=== PATIENT | female | born 1985 | race Caucasian/White ===

== ENCOUNTER 2016-03-11 16:24 | Emergency (ER) | payer OTHER ==
[2016-03-11] MEDS ORDERED: MORPHINE 4 MG/ML 1ML SYRINGE As Ordered ONE (17:59)
[2016-03-11 18:52] LABS: BASO % 0.3 % (0.0-1.0); EOS # 0.2 K/mm3 (0.0-0.50); EOS % 1.1 % (0.0-3.0); LARGE UNSTAINED CELL # 0.3 K/mm3 (0.0-0.4); LARGE UNSTAINED CELL % 2.1 % (0.0-4.0); LYMPH # 4.4 K/mm3 (1.5-4.5); LYMPH % 33.3 % (24.0-44.0); MEAN CORPUSCULAR HEMOGLOBIN 30.8 pg (27.0-33.0); MEAN CORPUSCULAR HGB CONC 33.9 g/dl (32.0-36.5); MEAN CORPUSCULAR VOLUME 90.8 fl (80.0-96.0); MONO # 0.5 K/mm3 (0.0-0.8); MONO % 3.5 % (0.0-5.0); NEUTROPHILS # 7.8 K/mm3 (1.8-7.7); NEUTROPHILS % 59.7 % (36.0-66.0); PLATELET COUNT, AUTOMATED 214 k/mm3 (150-450); RED CELL DISTRIBUTION WIDTH 13.1 % (11.5-14.5); WHITE BLOOD COUNT 13.1 K/mm3 (4.0-10.0)
[2016-03-11 18:55] LABS: ALBUMIN/GLOBULIN RATIO 1.21 (1.00-1.93); ALKALINE PHOSPHATASE 70 U/L (45-117); ALT/SGPT 10 U/L (12-78); AMYLASE 73 U/L (25-115); ANION GAP 8 MEQ/L (8-16); AST/SGOT 15 U/L (15-37); BILIRUBIN,DIRECT < 0.1 MG/DL (0.0-0.2); BILIRUBIN,TOTAL 0.3 MG/DL (0.2-1.0); BLOOD UREA NITROGEN 17 MG/DL (7-18); CALCIUM LEVEL 9.5 MG/DL (8.5-10.1); CARBON DIOXIDE LEVEL 26 MEQ/L (21-32); CHLORIDE LEVEL 109 MEQ/L (98-107); CREATININE FOR GFR 0.63 MG/DL (0.55-1.02); GLOMERULAR FILTRATION RATE > 60.0 (>60); GLUCOSE, FASTING 82 MG/DL (70-105); POTASSIUM SERUM 3.7 MEQ/L (3.5-5.1); SODIUM LEVEL 143 MEQ/L (136-145); TOTAL PROTEIN 7.3 GM/DL (6.4-8.2)
--- NOTE | 2016-03-11 19:40 | REPUSA ---
CLINICAL HISTORY: Renal colic TECHNIQUE: Multiple axial, sagittal and coronal CT images were obtained through the abdomen and pelvi s without administration of oral or IV contrast material. COMMENTS: The liver is of uniform attenuation without mass or defect. There is no intra or extrahepatic biliary ductal dilatation. The spleen is normal. The gallbladder is within normal limits. The pancreas is of normal contour and attenuation characteristics. There is no evidence of adrenal mass. The kidneys are normal in size, shape and configuration. No renal or ureteral calculi are identified. There is no hydroureter or hydronephrosis. There is no evidence for appendicitis. There is wall thickening noted involving fluid-filled loops of jejunum and ileum compatible with enteritis. No evidence for small or large bowel obstruction. There is no evidence of abdominal ascites or lymphadenopathy. There is no evidence of intrinsic or extrinsic bladder mass. There is no pelvic ascites or lymphadeno [place]. Status post complete hysterectomy. Images of the lung bases show no evidence of pleural or parenchymal mass. There are no pleural effusi ons. The bony structures are free of lytic or blastic lesions. IMPRESSION: Enteritis. Infectious and inflammatory etiologies are considered. No renal or ureteral calculi. Thank you for your kind referral of this patient.
[2016-03-11] MEDS ORDERED: KETOROLAC 30 MG/ML VIAL (J1885) As Ordered ONE (20:40)
[2016-03-11] MEDS ORDERED: metroNIDAZOLE (FLAGYL) 500 MG TAB As Ordered ONE (20:40)
--- NOTE | 2016-03-11 22:21 | EDDOCDS ---
Physician Documentation [facility] Name: Rosario Carranza Age: 30 yrs Sex: Female : 1985 Arrival Date: 03/11/2016 Time: 16:24 Bed 15 Private MD: CONSTANTINE Paez Disposition: 03/11 20:08 Critical Care: Critical care not applicable. Disposition: 03/11/16 22:02 Discharged to Home/Self Care. Impression: Other viral enteritis, Acute vaginitis - bacterial vaginosis. - Condition is Stable. - Discharge Instructions: Bacterial Vaginosis, Viral Gastroenteritis. - Prescriptions for Bentyl 10 mg Oral Capsule - take 1 capsule by ORAL route every 6 hours As needed; 40 capsule. Flagyl 500 mg Oral Tablet - take 1 tablet by ORAL route every 12 hours for 7 days; 14 tablet. ZOFRAN ODT 4 mg - dissolve 1 tablet by ORAL route 4 times per day As needed do not chew, do not swallow whole; 10 tablet. - Medication Reconciliation, Local Pharmacy Hours form. - Follow up: [facility]; When: 2 - 3 days; Reason: Recheck today's complaints, Continuance of care. - Problem is new. - Symptoms have improved. Historical: - Allergies: Lamictal (Rash); Levaquin (Vomit); - Home Meds: 1. Klonopin 0.5 mg Oral TbDL 1 tab four times a day 2. metoprolol succinate 25 mg Tb24 1 tab nightly 3. Seroquel 100 mg Oral tab 1 tab nightly - PMHx: Anxiety; tachycardia; - PSHx: Hysterectomy; ; D & C; Left Knee Surgery; - Social history: Smoking status: Patient uses tobacco products, heavy tobacco smoker. No barriers to communication noted, The patient speaks fluent Turkmen. - Family history: Not pertinent. - : The pt / caregiver states he / she is not on anticoagulants. Home medication list is obtained from the patient, [employer] import data. - Exposure Risk Screening:: None identified. 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 2 in. (157.48 cm); Pain 8/10; 18:51 BP 115 / 48; Pulse 85; Resp 18; Pulse Ox 98% on R/A; Pain 6/10; dsf 22:10 BP 127 / 72; Pulse 65; Resp 18; Temp 98.6(TE); Pulse Ox 98% on R/A; Pain 3/10; daniel 16:34 Body Mass Index 20.12 (49.90 kg, 157.48 cm) cmb MDM: 17:50 IV Saline Lock ordered. cs11 17:50 NS 0.9% 1000 ml IV at bolus once ordered. cs11 17:50 Set up pelvic ordered. cs11 17:51 morphine 4 mg IVP once ordered. cs11 17:51 CBC with Diff Ordered. EDMS 17:51 MED Profile Ordered. EDMS 17:51 Liver Profile Ordered. EDMS 17:51 Amylase Ordered. EDMS 17:51 Lipase Ordered. EDMS 17:51 Urinalysis Ordered. EDMS 17:51 Urine Culture Ordered. EDMS 18:28 Wet Prep Ordered. EDMS 18:28 GC & Chlamydia Amplification Ordered. EDMS 18:30 CT ABD & PELVIS: No Contrast Ordered. EDMS 19:32 Financial registration complete. gjb 20:06 Test interpretation: interpreted by Radiologist and personally reviewed, Abdomen/Pelvis pc CT; enteritis, else nad. 20:07 CBC with Diff Reviewed. pc 20:07 MED Profile Reviewed. pc 20:07 Liver Profile Reviewed. pc 20:07 Urinalysis Reviewed. pc 20:07 Amylase Reviewed. pc 20:07 Lipase Reviewed. pc 20:07 Wet Prep Reviewed. pc 20:07 CT ABD & PELVIS: No Contrast Reviewed. pc 20:08 Data reviewed: lab test results, all radiology studies and available results. Test pc interpretation: LAB - all labs as ordered have been reviewed, interpreted and considered in the overall management of the clinical presentation;. The patient has been re-examined and re-evaluated. The patient's symptoms have mildly improved after treatment. Disposition: The historical points, examination findings, and any diagnostic results supporting the provided diagnosis, were discussed with the patient or legal guardian. The need for outpatient follow up with the provider listed on their discharge instructions was discussed. They were encouraged to return to [facility], or the nearest ED, if symptoms worsen/persist, or for any other questions/concerns. 20:09 metroNIDAZOLE 500 mg PO once ordered. pc 20:09 ketorolac 30 mg IVP once ordered. pc Administered Medications: 18:11 Drug: NS 0.9% 1000 ml [sodium chloride 0.9 % injection solution] Route: IV; Rate: dsf bolus; Site: right antecubital; 18:11 Drug: morphine 4 mg [morphine 4 mg/mL intravenous cartridge (1 mL)] Route: IVP; Site: dsf right antecubital; 18:51 Follow up: BP 115 / 48; Pulse 85 bpm; Resp 18 bpm; Pulse Ox 98% RA; Pain 6/10 Adult dsf 20:45 Drug: metroNIDAZOLE 500 mg [metronidazole 500 mg tablet (1 tabs)] Route: PO; cf2 20:45 Drug: ketorolac 30 mg [ketorolac 30 mg/mL (1 mL) injection solution (1 mL)] Route: IVP; cf2 Site: right antecubital; Signatures: Dispatcher [employer] EDMS Colin Villa MD MD pc Sleeman, Kacey, RN RN Jos Sesay DO DO cs11 Libia Jones RN RN ko2 Isabel Vera Christina, RN RN cf2 Aspen Diggs RN dsf MTDD
--- NOTE | 2016-03-11 22:21 | EDDOCDS ---
Nurse's Notes [facility] Name: Rosario Carranza Age: 30 yrs Sex: Female : 1985 Arrival Date: 03/11/2016 Time: 16:24 Bed 15 Private MD: TREMAINE Paez Diagnosis: Other viral enteritis;Acute vaginitis-bacterial vaginosis Presentation: 03/11 17:08 Presenting complaint: states: patient is having severe abdominal pain - seen at [facility] and sent here for an ultrasound. Risk factors: the patient reports no vaginal bleeding. Adult Sepsis Screening: The patient does not have new or worsening altered mentation. Patient's respiratory rate is less than 22. Systolic blood pressure is greater than 100. Patient has a qSOFA score of 0- Negative Sepsis Screen. Suicide/Homicide risk assessment- the patient denies having any suicidal and/or homicidal ideations and does not present with any other emotional, behavioral or mental health complaints. Status: The patient is a dependent. Transition of care: Patient was received from [facility]. 17:08 Acuity: ROSS Level 3 [facility] 17:08 Method Of Arrival: Ambulance [facility] Triage Assessment: 17:10 General: Appears uncomfortable, well developed, well nourished, well groomed, Behavior kcs is agitated, anxious. Pain: Location: left pelvic area Pain currently is 8 out of 10 on a pain scale. HIV screening NA for this visit Offered previously. Neurological: Level of Consciousness is awake, alert. Respiratory: Airway is patent Respiratory effort is even, unlabored, Respiratory pattern is regular, symmetrical. Derm: Skin is intact, is healthy with good turgor, Skin is dry, Skin is normal. 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 Klonopin 0.5 mg Oral TbDL 1 tab four times a day 2. metoprolol succinate 25 mg Tb24 1 tab nightly 3. Seroquel 100 mg Oral tab 1 tab nightly - PMHx: Anxiety; tachycardia; - PSHx: Hysterectomy; ; D & C; Left Knee Surgery; - Social history: Smoking status: Patient uses tobacco products, heavy tobacco smoker. No barriers to communication noted, The patient speaks fluent Algerian. - Family history: Not pertinent. - : The pt / caregiver states he / she is not on anticoagulants. Home medication list is obtained from the patient, [employer] import data. - Exposure Risk Screening:: None identified. Screenin:18 Screening information is obtained from the patient. Fall risk: No risks identified. ko2 Assistance ADL's: requires no assistance with activities of daily living. Abuse/DV Screen: The patient / caregiver reports he/she is: not in a situation that causes fear, pain or injury. Nutritional screening: No deficits noted. Advance Directives: Currently, there is no health care proxy. There is no active DNR order. There is no living will. There is no Power of County Surveyor. home support is adequate. Assessment: 18:15 General: Appears uncomfortable, Behavior is appropriate for age, crying. Pain: dsf Location: left lower quadrant Pain currently is 8 out of 10 on a pain scale. Quality of pain is described as sharp, Pain began 1600. Neurological: Level of Consciousness is awake, alert, Oriented to person, place, time. Cardiovascular: Capillary refill < 3 seconds Heart tones S1 S2 present. Respiratory: Airway is patent Respiratory effort is even, unlabored, Respiratory pattern is regular, symmetrical, Breath sounds are clear bilaterally. GI: Abdomen is non- distended Bowel sounds present X 4 quads. Abd is soft X 4 quads Abd is tender to palpation in left lower quadrant. Derm: Skin is pink, warm & dry. 20:30 Reassessment: Patient appears in no apparent distress at this time. Patient denies pain cf2 at this time. Patient states feeling better. Patient states symptoms have improved. 22:15 General: Appears in no apparent distress, Behavior is appropriate for age, cooperative. ko2 Neurological: Level of Consciousness is awake, alert. Respiratory: Airway is patent Respiratory effort is even, unlabored, Respiratory pattern is regular, symmetrical. Derm: Skin is pink, warm & dry. Vital Signs: 16:34 BP 116 / 96; Pulse 101; Resp 22; Temp 99.3(O); Pulse Ox 100% ; Weight 49.9 kg; Height 5 cmb ft. 2 in. (157.48 cm); Pain 8/10; 18:51 BP 115 / 48; Pulse 85; Resp 18; Pulse Ox 98% on R/A; Pain 6/10; dsf 22:10 BP 127 / 72; Pulse 65; Resp 18; Temp 98.6(TE); Pulse Ox 98% on R/A; Pain 3/10; daniel 16:34 Body Mass Index 20.12 (49.90 kg, 157.48 cm) cmb Vitals: 16:34 Log In Time N/A - ambulance arrival. cmb ED Course: 16:25 Patient visited by Evonne Carranza, Tool And Die Manager. lbd 16:25 Patient moved to Waiting lbd 16:26 [place] [facility] [place] Physician. lbd 16:36 Patient moved to Pre RCE cmb 17:10 Triage Initiated kcs 17:36 Patient moved to 15 ct3 17:37 Jos Stone DO is Attending Physician. cs11 17:37 Patient visited by Jos Stone DO. cs11 18:14 Urine Culture Sent. dsf 18:14 Urinalysis Sent. dsf 18:14 Lipase Sent. dsf 18:15 Amylase Sent. dsf 18:15 MED Profile Sent. dsf 18:15 CBC with Diff Sent. dsf 18:15 Liver Profile Sent. dsf 18:15 Inserted saline lock: 18 gauge in right antecubital area The patient tolerated the dsf procedure well. 18:16 Patient visited by Aspen Diggs RN. dsf 19:02 Maddie Sharpe RN is Primary Nurse. cf2 19:02 Patient visited by Maddie Sharpe RN. cf2 19:03 Attending Physician role handed off by Jos Stone DO pc 19:03 Colin Villa MD is Attending Physician. pc 19:03 Patient visited by Colin Villa MD. pc 19:47 Patient visited by Maddie Shapre,MARGARITA. cf2 19:50 CT ABD & PELVIS: No Contrast Returned. EDMS 20:26 Patient visited by Maddie Sharpe,MARGARITA. cf2 21:26 Patient visited by Laurel Snell PCA. daniel 21:52 Patient visited by Maddie Sharpe,MARGARITA. cf2 22:00 Patient visited by Maddie Sharpe,MARGARITA. cf2 22:02 [facility] is Referral Physician. pc 22:11 Patient visited by Laurel Snell PCA. daniel 22:16 Discontinued lock intact, bleeding controlled, pressure dressing applied, No ko2 redness/swelling at site. No procedures done that require assistance. 22:18 The patient / caregiver is instructed regarding the plan of care and ED course. ko2 22:19 Patient visited by Maddie Sharpe RN. cf2 Administered Medications: 18:11 Drug: NS 0.9% 1000 ml [sodium chloride 0.9 % injection solution] Route: IV; Rate: dsf bolus; Site: right antecubital; 18:11 Drug: morphine 4 mg [morphine 4 mg/mL intravenous cartridge (1 mL)] Route: IVP; Site: dsf right antecubital; 18:51 Follow up: BP 115 / 48; Pulse 85 bpm; Resp 18 bpm; Pulse Ox 98% RA; Pain 6/10 Adult dsf 20:45 Drug: metroNIDAZOLE 500 mg [metronidazole 500 mg tablet (1 tabs)] Route: PO; cf2 20:45 Drug: ketorolac 30 mg [ketorolac 30 mg/mL (1 mL) injection solution (1 mL)] Route: IVP; cf2 Site: right antecubital; Order Results: Lab Order: CBC with Diff; SPEC'M 03/11/16 18:12 Test: WHITE BLOOD COUNT; Value: 13.1; Range: 4.0-10.0; Abnormal: Above high normal; Units: K/mm3; Status: F Test: RED BLOOD COUNT; Value: 4.18; Range: 4.00-5.40; Units: M/mm3; Status: F Test: HEMOGLOBIN; Value: 12.9; Range: 12.0-16.0; Units: g/dl; Status: F Test: HEMATOCRIT; Value: 38.0; Range: 36.0-47.0; Units: %; Status: F Test: MEAN CORPUSCULAR VOLUME; Value: 90.8; Range: 80.0-96.0; Units: fl; Status: F Test: MEAN CORPUSCULAR HEMOGLOBIN; Value: 30.8; Range: 27.0-33.0; Units: pg; Status: F Test: MEAN CORPUSCULAR HGB CONC; Value: 33.9; Range: 32.0-36.5; Units: g/dl; Status: F Test: RED CELL DISTRIBUTION WIDTH; Value: 13.1; Range: 11.5-14.5; Units: %; Status: F Test: PLATELET COUNT, AUTOMATED; Value: 214; Range: 150-450; Units: k/mm3; Status: F Test: NEUTROPHILS %; Value: 59.7; Range: 36.0-66.0; Units: %; Status: F Test: LYMPH %; Value: 33.3; Range: 24.0-44.0; Units: %; Status: F Test: MONO %; Value: 3.5; Range: 0.0-5.0; Units: %; Status: F Test: EOS %; Value: 1.1; Range: 0.0-3.0; Units: %; Status: F Test: BASO %; Value: 0.3; Range: 0.0-1.0; Units: %; Status: F Test: LARGE UNSTAINED CELL %; Value: 2.1; Range: 0.0-4.0; Units: %; Status: F Test: NEUTROPHILS #; Value: 7.8; Range: 1.8-7.7; Abnormal: Above high normal; Units: K/mm3; Status: F Test: LYMPH #; Value: 4.4; Range: 1.5-4.5; Units: K/mm3; Status: F Test: MONO #; Value: 0.5; Range: 0.0-0.8; Units: K/mm3; Status: F Test: EOS #; Value: 0.2; Range: 0.0-0.50; Units: K/mm3; Status: F Test: BASO #; Value: 0.0; Range: 0.0-0.2; Units: K/mm3; Status: F Test: LARGE UNSTAINED CELL #; Value: 0.3; Range: 0.0-0.4; Units: K/mm3; Status: F Lab Order: [facility] Profile; [facility] 03/11/16 18:12 Test: GLUCOSE, FASTING; Value: 82; Range: 70-105; Units: MG/DL; Status: F Test: BLOOD UREA NITROGEN; Value: 17; Range: 7-18; Units: MG/DL; Status: F Test: CREATININE FOR GFR; Value: 0.63; Range: 0.55-1.02; Units: MG/DL; Status: F Test: GLOMERULAR FILTRATION RATE; Value: > 60.0; Range: >60; Status: F Test: SODIUM LEVEL; Value: 143; Range: 136-145; Units: MEQ/L; Status: F Test: POTASSIUM SERUM; Value: 3.7; Range: 3.5-5.1; Units: MEQ/L; Status: F Test: CHLORIDE LEVEL; Value: 109; Range: 98-107; Abnormal: Above high normal; Units: MEQ/L; Status: F Test: CARBON DIOXIDE LEVEL; Value: 26; Range: 21-32; Units: MEQ/L; Status: F Test: ANION GAP; Value: 8; Range: 8-16; Units: MEQ/L; Status: F Test: CALCIUM LEVEL; Value: 9.5; Range: 8.5-10.1; Units: MG/DL; Status: F Test Note: ; Units are mL/min/1.73 m2 Chronic Kidney Disease Staging per NKF: Stage I & II GFR >=60 Normal to Mildly Decreased Stage III GFR 30-59 Moderately Decreased Stage IV GFR 15-29 Severely Decreased Stage V GFR <15 Very Little GFR Left ESRD GFR <15 on MOTEL FOOD SERVICE SUPERVISOR Lab Order: Liver Profile; [facility] 03/11/16 18:12 Test: AST/SGOT; Value: 15; Range: 15-37; Units: U/L; Status: F Test: ALT/SGPT; Value: 10; Range: 12-78; Abnormal: Below low normal; Units: U/L; Status: F Test: ALKALINE PHOSPHATASE; Value: 70; Range: 45-117; Units: U/L; Status: F Test: BILIRUBIN,TOTAL; Value: 0.3; Range: 0.2-1.0; Units: MG/DL; Status: F Test: BILIRUBIN,DIRECT; Value: < 0.1; Range: 0.0-0.2; Units: MG/DL; Status: F Test: TOTAL PROTEIN; Value: 7.3; Range: 6.4-8.2; Units: GM/DL; Status: F Test: ALBUMIN; Value: 4.0; Range: 3.2-5.2; Units: GM/DL; Status: F Test: ALBUMIN/GLOBULIN RATIO; Value: 1.21; Range: 1.00-1.93; Status: F Lab Order: Amylase; SPEC'M 03/11/16 18:12 Test: AMYLASE; Value: 73; Range: 25-115; Units: U/L; Status: F Lab Order: Lipase; SPEC'M 03/11/16 18:12 Test: LIPASE; Value: 214; Range: 73-393; Units: U/L; Status: F Lab Order: Urinalysis; SPEC'M 03/11/16 18:12 Test: APPEARANCE, URINE; Value: TURBID; Range: CLEAR; Abnormal: Above high normal; Status: F Test: COLOR, URINE; Value: YELLOW; Range: YELLOW; Status: F Test: PH,URINE; Value: 7.0; Range: 5.0-9.0; Units: UNITS; Status: F Test: SPECIFIC GRAVITY URINE AUTO; Value: 1.013; Range: 1.002-1.035; Status: F Test: PROTEIN, URINE AUTO; Value: NEGATIVE; Range: NEGATIVE; Units: mg/dL; Status: F Test: GLUCOSE, URINE (UA) AUTO; Value: NEGATIVE; Range: NEGATIVE; Units: mg/dL; Status: F Test: KETONE, URINE AUTO; Value: NEGATIVE; Range: NEGATIVE; Units: mg/dL; Status: F Test: UROBILINOGEN, URINE AUTO; Value: 0.2; Range: 0.0-2.0; Units: mg/dL; Status: F Test: BILIRUBIN, URINE AUTO; Value: NEGATIVE; Range: NEGATIVE; Status: F Test: NITRITE, URINE AUTO; Value: NEGATIVE; Range: NEGATIVE; Status: F Test: LEUKOCYTE ESTERASE, URINE AUTO; Value: NEGATIVE; Range: NEGATIVE; Status: F Test: BLOOD, URINE BLOOD; Value: NEGATIVE; Range: NEGATIVE; Status: F Test: WBC, URINE AUTO; Value: 0; Range: 0-3; Units: /HPF; Status: F Test: RBC, URINE AUTO; Value: 0; Range: 0-3; Units: /HPF; Status: F Test: BACTERIA, URINE AUTO; Value: NEGATIVE; Range: NEGATIVE; Status: F Test: SQUAMOUS EPITHELIAL CELL UR AU; Value: 3; Range: 0-6; Units: /HPF; Status: F Test: HYALINE CAST, URINE AUTO; Value: 0; Range: 0-1; Units: /LPF; Status: F Test: AMORPHOUS SEDIMENT; Value: MODERATE; Range: NEGATIVE; Abnormal: Above high normal; Status: F Lab Order: Wet Prep; SPEC'M 03/11/16 18:34 Test: WET PREP; Value: WET PREP RESULT; Status: F Test: WET PREP; Value: FEW WBC; Status: F Test: WET PREP; Value: FEW RBC; Status: F Test: WET PREP; Value: MODERATE CLUE CELLS PRESENT; Status: F Test: WET PREP; Value: MANY SHORT RODS PRESENT; Status: F Test: WET PREP; Value: FEW LONG RODS PRESENT; Status: F Radiology Order: CT ABD & PELVIS: No Contrast Test: CT ABD & PELVIS: No Contrast REASON FOR EXAMINATION: Renal colic; ; CLINICAL HISTORY: Renal colic; TECHNIQUE: Multiple axial, sagittal and coronal CT images were obtained through the abdomen and pelvi; s without administration of oral or IV contrast material.; COMMENTS:; The liver is of uniform attenuation without mass or defect. There is no intra or extrahepatic biliary; ductal dilatation. The spleen is normal. The gallbladder is within normal limits. The pancreas is of; normal contour and attenuation characteristics. There is no evidence of adrenal mass.; The kidneys are normal in size, shape and configuration. No renal or ureteral calculi are identified.; There is no hydroureter or hydronephrosis.; There is no evidence for appendicitis. There is wall thickening noted involving fluid-filled loops of; jejunum and ileum compatible with enteritis. No evidence for small or large bowel obstruction. There; is no evidence of abdominal ascites or lymphadenopathy.; There is no evidence of intrinsic or extrinsic bladder mass. There is no pelvic ascites or lymphadeno; [place]. Status post complete hysterectomy.; Images of the lung bases show no evidence of pleural or parenchymal mass. There are no pleural effusi; ons.; The bony structures are free of lytic or blastic lesions.; IMPRESSION:; Enteritis. Infectious and inflammatory etiologies are considered.; No renal or ureteral calculi.; Thank you for your kind referral of this patient.; ; Outcome: 22:02 Discharge ordered by Provider. pc 22:18 Discharge Assessment: Patient awake, alert and oriented x 3. No cognitive and/or ko2 functional deficits noted. Patient verbalized understanding of disposition instructions. The following High Risk Discharge criteria are identified: None. Discharged to home ambulatory. Condition: stable. Discharge instructions given to patient, Instructed on discharge instructions, follow up and referral plans. Demonstrated understanding of instructions, Pt was receptive of discharge instructions/ teaching. CT Study completed. Property sent home with patient. 22:19 Discharge Assessment: patient administered narcotics - yes. Pt provided with safe ko2 discharge. 22:20 Patient left the ED. cf2 Signatures: Dispatcher [employer] EDMS Colin Villa MD MD pc Sleeman, Kacey, RN RN kcs Evonne Carranza, Tool And Die Manager Unit lbd Alis, Lauerl, RESEARCH AND DEVELOPMENT TESTER RESEARCH AND DEVELOPMENT TESTER daniel Richards, Sharon, RESEARCH AND DEVELOPMENT TESTER RESEARCH AND DEVELOPMENT TESTER ct3 Aspen Diggs,RN RN Kenia Dykes Craig, DO cs11 Libia JonesRN RN ko2 Maddie Sharpe,RN RN cf2 MTDD
--- NOTE | 2016-03-13 23:21 | EDDOCDS ---
Physician Documentation [facility] Name: Rosario Carranza Age: 30 yrs Sex: Female : 1985 Arrival Date: 03/11/2016 Time: 16:24 Bed 15 Private MD: CONSTANTINE Paez Disposition: 03/11 20:08 Critical Care: Critical care not applicable. Disposition: 03/11/16 22:02 Discharged to Home/Self Care. Impression: Other viral enteritis, Acute vaginitis - bacterial vaginosis. - Condition is Stable. - Discharge Instructions: Bacterial Vaginosis, Viral Gastroenteritis. - Prescriptions for Bentyl 10 mg Oral Capsule - take 1 capsule by ORAL route every 6 hours As needed; 40 capsule. Flagyl 500 mg Oral Tablet - take 1 tablet by ORAL route every 12 hours for 7 days; 14 tablet. ZOFRAN ODT 4 mg - dissolve 1 tablet by ORAL route 4 times per day As needed do not chew, do not swallow whole; 10 tablet. - Medication Reconciliation, Local Pharmacy Hours form. - Follow up: [facility]; When: 2 - 3 days; Reason: Recheck today's complaints, Continuance of care. - Problem is new. - Symptoms have improved. Historical: - Allergies: Lamictal (Rash); Levaquin (Vomit); - Home Meds: 1. Klonopin 0.5 mg Oral TbDL 1 tab four times a day 2. metoprolol succinate 25 mg Tb24 1 tab nightly 3. Seroquel 100 mg Oral tab 1 tab nightly - PMHx: Anxiety; tachycardia; - PSHx: Hysterectomy; ; D & C; Left Knee Surgery; - Social history: Smoking status: Patient uses tobacco products, heavy tobacco smoker. No barriers to communication noted, The patient speaks fluent Egyptian. - Family history: Not pertinent. - : The pt / caregiver states he / she is not on anticoagulants. Home medication list is obtained from the patient, [employer] import data. - Exposure Risk Screening:: None identified. 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 2 in. (157.48 cm); Pain 8/10; 18:51 BP 115 / 48; Pulse 85; Resp 18; Pulse Ox 98% on R/A; Pain 6/10; dsf 22:10 BP 127 / 72; Pulse 65; Resp 18; Temp 98.6(TE); Pulse Ox 98% on R/A; Pain 3/10; daniel 16:34 Body Mass Index 20.12 (49.90 kg, 157.48 cm) cmb MDM: 17:50 IV Saline Lock ordered. cs11 17:50 NS 0.9% 1000 ml IV at bolus once ordered. cs11 17:50 Set up pelvic ordered. cs11 17:51 morphine 4 mg IVP once ordered. cs11 17:51 CBC with Diff Ordered. EDMS 17:51 MED Profile Ordered. EDMS 17:51 Liver Profile Ordered. EDMS 17:51 Amylase Ordered. EDMS 17:51 Lipase Ordered. EDMS 17:51 Urinalysis Ordered. EDMS 17:51 Urine Culture Ordered. EDMS 18:28 Wet Prep Ordered. EDMS 18:28 GC & Chlamydia Amplification Ordered. EDMS 18:30 CT ABD & PELVIS: No Contrast Ordered. EDMS 19:32 Financial registration complete. gjb 20:06 Test interpretation: interpreted by Radiologist and personally reviewed, Abdomen/Pelvis pc CT; enteritis, else nad. 20:07 CBC with Diff Reviewed. pc 20:07 MED Profile Reviewed. pc 20:07 Liver Profile Reviewed. pc 20:07 Urinalysis Reviewed. pc 20:07 Amylase Reviewed. pc 20:07 Lipase Reviewed. pc 20:07 Wet Prep Reviewed. pc 20:07 CT ABD & PELVIS: No Contrast Reviewed. pc 20:08 Data reviewed: lab test results, all radiology studies and available results. Test pc interpretation: LAB - all labs as ordered have been reviewed, interpreted and considered in the overall management of the clinical presentation;. The patient has been re-examined and re-evaluated. The patient's symptoms have mildly improved after treatment. Disposition: The historical points, examination findings, and any diagnostic results supporting the provided diagnosis, were discussed with the patient or legal guardian. The need for outpatient follow up with the provider listed on their discharge instructions was discussed. They were encouraged to return to [facility], or the nearest ED, if symptoms worsen/persist, or for any other questions/concerns. 20:09 metroNIDAZOLE 500 mg PO once ordered. pc 20:09 ketorolac 30 mg IVP once ordered. pc 03/12 00:06 [facility] Payment Agreement was scanned into [employer] and attached to record. [email or web address] 12:07 Radiology Report was scanned into [employer] and attached to record. gb 12:28 T-Sheet-- Draft Copy was scanned into [employer] and attached to record. gb Administered Medications: 03/11 18:11 Drug: NS 0.9% 1000 ml [sodium chloride 0.9 % injection solution] Route: IV; Rate: dsf bolus; Site: right antecubital; 18:11 Drug: morphine 4 mg [morphine 4 mg/mL intravenous cartridge (1 mL)] Route: IVP; Site: dsf right antecubital; 18:51 Follow up: BP 115 / 48; Pulse 85 bpm; Resp 18 bpm; Pulse Ox 98% RA; Pain 6/10 Adult dsf 20:45 Drug: metroNIDAZOLE 500 mg [metronidazole 500 mg tablet (1 tabs)] Route: PO; cf2 20:45 Drug: ketorolac 30 mg [ketorolac 30 mg/mL (1 mL) injection solution (1 mL)] Route: IVP; cf2 Site: right antecubital; Signatures: Dispatcher [employer] EDMS Colin Villa MD MD pc Sleeman, Kacey, RN RN [facility] Ny Garcia, Reg Reg gb Jos Stone, DO cs11 Libia Jones RN RN ko2 Isabel Vera Kimberly, Reg Reg ks16 Maddie Sharpe RN RN cf2 Aspen Diggs RN dsf The chart was reviewed and I authenticate all verbal orders and agree with the evaluation and treatment provided.Attachments: 03/12 00:06 [facility] Payment Agreement [email or web address] 12:28 T-Sheet-- Draft Copy gb Chart Complete MTDD
--- NOTE | 2016-03-13 23:21 | EDDOCDS ---
Nurse's Notes [facility] Name: Rosario Carranza Age: 30 yrs Sex: Female : 1985 Arrival Date: 03/11/2016 Time: 16:24 Bed 15 Private MD: TREMAINE Paez Diagnosis: Other viral enteritis;Acute vaginitis-bacterial vaginosis Presentation: 03/11 17:08 Presenting complaint: states: patient is having severe abdominal pain - seen at [facility] and sent here for an ultrasound. Risk factors: the patient reports no vaginal bleeding. Adult Sepsis Screening: The patient does not have new or worsening altered mentation. Patient's respiratory rate is less than 22. Systolic blood pressure is greater than 100. Patient has a qSOFA score of 0- Negative Sepsis Screen. Suicide/Homicide risk assessment- the patient denies having any suicidal and/or homicidal ideations and does not present with any other emotional, behavioral or mental health complaints. Status: The patient is a dependent. Transition of care: Patient was received from [facility]. 17:08 Acuity: ROSS Level 3 [facility] 17:08 Method Of Arrival: Ambulance [facility] Triage Assessment: 17:10 General: Appears uncomfortable, well developed, well nourished, well groomed, Behavior kcs is agitated, anxious. Pain: Location: left pelvic area Pain currently is 8 out of 10 on a pain scale. HIV screening NA for this visit Offered previously. Neurological: Level of Consciousness is awake, alert. Respiratory: Airway is patent Respiratory effort is even, unlabored, Respiratory pattern is regular, symmetrical. Derm: Skin is intact, is healthy with good turgor, Skin is dry, Skin is normal. 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 Klonopin 0.5 mg Oral TbDL 1 tab four times a day 2. metoprolol succinate 25 mg Tb24 1 tab nightly 3. Seroquel 100 mg Oral tab 1 tab nightly - PMHx: Anxiety; tachycardia; - PSHx: Hysterectomy; ; D & C; Left Knee Surgery; - Social history: Smoking status: Patient uses tobacco products, heavy tobacco smoker. No barriers to communication noted, The patient speaks fluent Stateless. - Family history: Not pertinent. - : The pt / caregiver states he / she is not on anticoagulants. Home medication list is obtained from the patient, [employer] import data. - Exposure Risk Screening:: None identified. Screenin:18 Screening information is obtained from the patient. Fall risk: No risks identified. ko2 Assistance ADL's: requires no assistance with activities of daily living. Abuse/DV Screen: The patient / caregiver reports he/she is: not in a situation that causes fear, pain or injury. Nutritional screening: No deficits noted. Advance Directives: Currently, there is no health care proxy. There is no active DNR order. There is no living will. There is no Power of Soa Integration Developer. home support is adequate. Assessment: 18:15 General: Appears uncomfortable, Behavior is appropriate for age, crying. Pain: dsf Location: left lower quadrant Pain currently is 8 out of 10 on a pain scale. Quality of pain is described as sharp, Pain began 1600. Neurological: Level of Consciousness is awake, alert, Oriented to person, place, time. Cardiovascular: Capillary refill < 3 seconds Heart tones S1 S2 present. Respiratory: Airway is patent Respiratory effort is even, unlabored, Respiratory pattern is regular, symmetrical, Breath sounds are clear bilaterally. GI: Abdomen is non- distended Bowel sounds present X 4 quads. Abd is soft X 4 quads Abd is tender to palpation in left lower quadrant. Derm: Skin is pink, warm & dry. 20:30 Reassessment: Patient appears in no apparent distress at this time. Patient denies pain cf2 at this time. Patient states feeling better. Patient states symptoms have improved. 22:15 General: Appears in no apparent distress, Behavior is appropriate for age, cooperative. ko2 Neurological: Level of Consciousness is awake, alert. Respiratory: Airway is patent Respiratory effort is even, unlabored, Respiratory pattern is regular, symmetrical. Derm: Skin is pink, warm & dry. Vital Signs: 16:34 BP 116 / 96; Pulse 101; Resp 22; Temp 99.3(O); Pulse Ox 100% ; Weight 49.9 kg; Height 5 cmb ft. 2 in. (157.48 cm); Pain 8/10; 18:51 BP 115 / 48; Pulse 85; Resp 18; Pulse Ox 98% on R/A; Pain 6/10; dsf 22:10 BP 127 / 72; Pulse 65; Resp 18; Temp 98.6(TE); Pulse Ox 98% on R/A; Pain 3/10; daniel 16:34 Body Mass Index 20.12 (49.90 kg, 157.48 cm) cmb Vitals: 16:34 Log In Time N/A - ambulance arrival. cmb ED Course: 16:25 Patient visited by Evonne Carranza, Cardiologist. lbd 16:25 Patient moved to Waiting lbd 16:26 Philippe [facility] [place] Private Physician. lbd 16:36 Patient moved to Pre RCE cmb 17:10 Triage Initiated kcs 17:36 Patient moved to 15 ct3 17:37 Jos Stone DO is Attending Physician. cs11 17:37 Patient visited by Jos Stone DO. cs11 18:14 Urine Culture Sent. dsf 18:14 Urinalysis Sent. dsf 18:14 Lipase Sent. dsf 18:15 Amylase Sent. dsf 18:15 MED Profile Sent. dsf 18:15 CBC with Diff Sent. dsf 18:15 Liver Profile Sent. dsf 18:15 Inserted saline lock: 18 gauge in right antecubital area The patient tolerated the dsf procedure well. 18:16 Patient visited by Aspen Diggs RN. dsf 19:02 Maddie Sharpe RN is Primary Nurse. cf2 19:02 Patient visited by Maddie Sharpe RN. cf2 19:03 Attending Physician role handed off by Jos Stone DO pc 19:03 Colin Villa MD is Attending Physician. pc 19:03 Patient visited by Colin Villa MD. pc 19:47 Patient visited by Maddie Sharpe,MARGARITA. cf2 19:50 CT ABD & PELVIS: No Contrast Returned. EDMS 20:26 Patient visited by Maddie Sharpe,MARGARITA. cf2 21:26 Patient visited by Laurel Snell PCA. daniel 21:52 Patient visited by Maddie Sharpe,MARGARITA. cf2 22:00 Patient visited by Maddie Sharpe,MARGARITA. cf2 22:02 [facility] is Referral Physician. pc 22:11 Patient visited by Laurel Snell PCA. daniel 22:16 Discontinued lock intact, bleeding controlled, pressure dressing applied, No ko2 redness/swelling at site. No procedures done that require assistance. 22:18 The patient / caregiver is instructed regarding the plan of care and ED course. ko2 22:19 Patient visited by Maddie Sharpe RN. cf2 03/12 00:06 [facility] Payment Agreement was scanned into [email or web address] and attached to record. [email or web address] 12:07 Radiology Report was scanned into [email or web address] and attached to record. gb 12:28 T-Sheet-- Draft Copy was scanned into [email or web address] and attached to record. gb Administered Medications: 03/11 18:11 Drug: NS 0.9% 1000 ml [sodium chloride 0.9 % injection solution] Route: IV; Rate: dsf bolus; Site: right antecubital; 18:11 Drug: morphine 4 mg [morphine 4 mg/mL intravenous cartridge (1 mL)] Route: IVP; Site: dsf right antecubital; 18:51 Follow up: BP 115 / 48; Pulse 85 bpm; Resp 18 bpm; Pulse Ox 98% RA; Pain 6/10 Adult dsf 20:45 Drug: metroNIDAZOLE 500 mg [metronidazole 500 mg tablet (1 tabs)] Route: PO; cf2 20:45 Drug: ketorolac 30 mg [ketorolac 30 mg/mL (1 mL) injection solution (1 mL)] Route: IVP; cf2 Site: right antecubital; Order Results: Lab Order: CBC with Diff; SPEC'M 03/11/16 18:12 Test: WHITE BLOOD COUNT; Value: 13.1; Range: 4.0-10.0; Abnormal: Above high normal; Units: K/mm3; Status: F Test: RED BLOOD COUNT; Value: 4.18; Range: 4.00-5.40; Units: M/mm3; Status: F Test: HEMOGLOBIN; Value: 12.9; Range: 12.0-16.0; Units: g/dl; Status: F Test: HEMATOCRIT; Value: 38.0; Range: 36.0-47.0; Units: %; Status: F Test: MEAN CORPUSCULAR VOLUME; Value: 90.8; Range: 80.0-96.0; Units: fl; Status: F Test: MEAN CORPUSCULAR HEMOGLOBIN; Value: 30.8; Range: 27.0-33.0; Units: pg; Status: F Test: MEAN CORPUSCULAR HGB CONC; Value: 33.9; Range: 32.0-36.5; Units: g/dl; Status: F Test: RED CELL DISTRIBUTION WIDTH; Value: 13.1; Range: 11.5-14.5; Units: %; Status: F Test: PLATELET COUNT, AUTOMATED; Value: 214; Range: 150-450; Units: k/mm3; Status: F Test: NEUTROPHILS %; Value: 59.7; Range: 36.0-66.0; Units: %; Status: F Test: LYMPH %; Value: 33.3; Range: 24.0-44.0; Units: %; Status: F Test: MONO %; Value: 3.5; Range: 0.0-5.0; Units: %; Status: F Test: EOS %; Value: 1.1; Range: 0.0-3.0; Units: %; Status: F Test: BASO %; Value: 0.3; Range: 0.0-1.0; Units: %; Status: F Test: LARGE UNSTAINED CELL %; Value: 2.1; Range: 0.0-4.0; Units: %; Status: F Test: NEUTROPHILS #; Value: 7.8; Range: 1.8-7.7; Abnormal: Above high normal; Units: K/mm3; Status: F Test: LYMPH #; Value: 4.4; Range: 1.5-4.5; Units: K/mm3; Status: F Test: MONO #; Value: 0.5; Range: 0.0-0.8; Units: K/mm3; Status: F Test: EOS #; Value: 0.2; Range: 0.0-0.50; Units: K/mm3; Status: F Test: BASO #; Value: 0.0; Range: 0.0-0.2; Units: K/mm3; Status: F Test: LARGE UNSTAINED CELL #; Value: 0.3; Range: 0.0-0.4; Units: K/mm3; Status: F Lab Order: [facility] Profile; [facility] 03/11/16 18:12 Test: GLUCOSE, FASTING; Value: 82; Range: 70-105; Units: MG/DL; Status: F Test: BLOOD UREA NITROGEN; Value: 17; Range: 7-18; Units: MG/DL; Status: F Test: CREATININE FOR GFR; Value: 0.63; Range: 0.55-1.02; Units: MG/DL; Status: F Test: GLOMERULAR FILTRATION RATE; Value: > 60.0; Range: >60; Status: F Test: SODIUM LEVEL; Value: 143; Range: 136-145; Units: MEQ/L; Status: F Test: POTASSIUM SERUM; Value: 3.7; Range: 3.5-5.1; Units: MEQ/L; Status: F Test: CHLORIDE LEVEL; Value: 109; Range: 98-107; Abnormal: Above high normal; Units: MEQ/L; Status: F Test: CARBON DIOXIDE LEVEL; Value: 26; Range: 21-32; Units: MEQ/L; Status: F Test: ANION GAP; Value: 8; Range: 8-16; Units: MEQ/L; Status: F Test: CALCIUM LEVEL; Value: 9.5; Range: 8.5-10.1; Units: MG/DL; Status: F Test Note: ; Units are mL/min/1.73 m2 Chronic Kidney Disease Staging per NKF: Stage I & II GFR >=60 Normal to Mildly Decreased Stage III GFR 30-59 Moderately Decreased Stage IV GFR 15-29 Severely Decreased Stage V GFR <15 Very Little GFR Left ESRD GFR <15 on BUSINESS OFFICE MANAGER Lab Order: Liver Profile; SPEC'M 03/11/16 18:12 Test: AST/SGOT; Value: 15; Range: 15-37; Units: U/L; Status: F Test: ALT/SGPT; Value: 10; Range: 12-78; Abnormal: Below low normal; Units: U/L; Status: F Test: ALKALINE PHOSPHATASE; Value: 70; Range: 45-117; Units: U/L; Status: F Test: BILIRUBIN,TOTAL; Value: 0.3; Range: 0.2-1.0; Units: MG/DL; Status: F Test: BILIRUBIN,DIRECT; Value: < 0.1; Range: 0.0-0.2; Units: MG/DL; Status: F Test: TOTAL PROTEIN; Value: 7.3; Range: 6.4-8.2; Units: GM/DL; Status: F Test: ALBUMIN; Value: 4.0; Range: 3.2-5.2; Units: GM/DL; Status: F Test: ALBUMIN/GLOBULIN RATIO; Value: 1.21; Range: 1.00-1.93; Status: F Lab Order: Amylase; SPEC'M 03/11/16 18:12 Test: AMYLASE; Value: 73; Range: 25-115; Units: U/L; Status: F Lab Order: Lipase; SPEC'M 03/11/16 18:12 Test: LIPASE; Value: 214; Range: 73-393; Units: U/L; Status: F Lab Order: Urinalysis; SPEC'M 03/11/16 18:12 Test: APPEARANCE, URINE; Value: TURBID; Range: CLEAR; Abnormal: Above high normal; Status: F Test: COLOR, URINE; Value: YELLOW; Range: YELLOW; Status: F Test: PH,URINE; Value: 7.0; Range: 5.0-9.0; Units: UNITS; Status: F Test: SPECIFIC GRAVITY URINE AUTO; Value: 1.013; Range: 1.002-1.035; Status: F Test: PROTEIN, URINE AUTO; Value: NEGATIVE; Range: NEGATIVE; Units: mg/dL; Status: F Test: GLUCOSE, URINE (UA) AUTO; Value: NEGATIVE; Range: NEGATIVE; Units: mg/dL; Status: F Test: KETONE, URINE AUTO; Value: NEGATIVE; Range: NEGATIVE; Units: mg/dL; Status: F Test: UROBILINOGEN, URINE AUTO; Value: 0.2; Range: 0.0-2.0; Units: mg/dL; Status: F Test: BILIRUBIN, URINE AUTO; Value: NEGATIVE; Range: NEGATIVE; Status: F Test: NITRITE, URINE AUTO; Value: NEGATIVE; Range: NEGATIVE; Status: F Test: LEUKOCYTE ESTERASE, URINE AUTO; Value: NEGATIVE; Range: NEGATIVE; Status: F Test: BLOOD, URINE BLOOD; Value: NEGATIVE; Range: NEGATIVE; Status: F Test: WBC, URINE AUTO; Value: 0; Range: 0-3; Units: /HPF; Status: F Test: RBC, URINE AUTO; Value: 0; Range: 0-3; Units: /HPF; Status: F Test: BACTERIA, URINE AUTO; Value: NEGATIVE; Range: NEGATIVE; Status: F Test: SQUAMOUS EPITHELIAL CELL UR AU; Value: 3; Range: 0-6; Units: /HPF; Status: F Test: HYALINE CAST, URINE AUTO; Value: 0; Range: 0-1; Units: /LPF; Status: F Test: AMORPHOUS SEDIMENT; Value: MODERATE; Range: NEGATIVE; Abnormal: Above high normal; Status: F Lab Order: Urine Culture; SPEC'M 03/11/16 18:12 Test: URINE CULTURE; Value: URINE CULTURE RESULT NO GROWTH; Status: F Lab Order: Wet Prep; SPEC'M 03/11/16 18:34 Test: WET PREP; Value: WET PREP RESULT; Status: F Test: WET PREP; Value: FEW WBC; Status: F Test: WET PREP; Value: FEW RBC; Status: F Test: WET PREP; Value: MODERATE CLUE CELLS PRESENT; Status: F Test: WET PREP; Value: MANY SHORT RODS PRESENT; Status: F Test: WET PREP; Value: FEW LONG RODS PRESENT; Status: F Lab Order: GC & Chlamydia Amplification; SPEC'M 03/11/16 18:34 Test: CHLAMYDIA DNA AMPLIFICATION; Value: NEGATIVE; Range: NEGATIVE; Status: F Test: GC DNA AMPLIFICATION; Value: NEGATIVE; Range: NEGATIVE; Status: F Radiology Order: CT ABD & PELVIS: No Contrast Test: CT ABD & PELVIS: No Contrast REASON FOR EXAMINATION: Renal colic; ; CLINICAL HISTORY: Renal colic; TECHNIQUE: Multiple axial, sagittal and coronal CT images were obtained through the abdomen and pelvi; s without administration of oral or IV contrast material.; COMMENTS:; The liver is of uniform attenuation without mass or defect. There is no intra or extrahepatic biliary; ductal dilatation. The spleen is normal. The gallbladder is within normal limits. The pancreas is of; normal contour and attenuation characteristics. There is no evidence of adrenal mass.; The kidneys are normal in size, shape and configuration. No renal or ureteral calculi are identified.; There is no hydroureter or hydronephrosis.; There is no evidence for appendicitis. There is wall thickening noted involving fluid-filled loops of; jejunum and ileum compatible with enteritis. No evidence for small or large bowel obstruction. There; is no evidence of abdominal ascites or lymphadenopathy.; There is no evidence of intrinsic or extrinsic bladder mass. There is no pelvic ascites or lymphadeno; [place]. Status post complete hysterectomy.; Images of the lung bases show no evidence of pleural or parenchymal mass. There are no pleural effusi; ons.; The bony structures are free of lytic or blastic lesions.; IMPRESSION:; Enteritis. Infectious and inflammatory etiologies are considered.; No renal or ureteral calculi.; Thank you for your kind referral of this patient.; ; Outcome: 22:02 Discharge ordered by Provider. pc 22:18 Discharge Assessment: Patient awake, alert and oriented x 3. No cognitive and/or ko2 functional deficits noted. Patient verbalized understanding of disposition instructions. The following High Risk Discharge criteria are identified: None. Discharged to home ambulatory. Condition: stable. Discharge instructions given to patient, Instructed on discharge instructions, follow up and referral plans. Demonstrated understanding of instructions, Pt was receptive of discharge instructions/ teaching. CT Study completed. Property sent home with patient. 22:19 Discharge Assessment: patient administered narcotics - yes. Pt provided with safe ko2 discharge. 22:20 Patient left the ED. cf2 Signatures: Dispatcher [employer] EDMS Colin Villa MD MD pc Sleeman, Kacey, RN RN Evonne Guthrie, Cardiologist Unit lbd Ny Garcia, Reg Reg gb Laurel Snell, BOTTOM SPRAYER BOTTOM SPRAYER daniel Richards, Sharon, BOTTOM SPRAYER BOTTOM SPRAYER ct3 Aspen DiggsRN Kenia Ricardo cmb Jos Stone DO DO cs11 Libia Jones RN RN ko2 Mary John, Reg Reg ks16 Maddie SharpeRN RN cf2 Chart Complete MTDD
--- NOTE | 2016-03-13 23:21 | EDDOCDS ---
Physician Documentation [facility] Name: Rosario Carranza Age: 30 yrs Sex: Female : 1985 Arrival Date: 03/11/2016 Time: 16:24 Bed 15 Private MD: CONSTANTINE Paez Disposition: 03/11 20:08 Critical Care: Critical care not applicable. Disposition: 03/11/16 22:02 Discharged to Home/Self Care. Impression: Other viral enteritis, Acute vaginitis - bacterial vaginosis. - Condition is Stable. - Discharge Instructions: Bacterial Vaginosis, Viral Gastroenteritis. - Prescriptions for Bentyl 10 mg Oral Capsule - take 1 capsule by ORAL route every 6 hours As needed; 40 capsule. Flagyl 500 mg Oral Tablet - take 1 tablet by ORAL route every 12 hours for 7 days; 14 tablet. ZOFRAN ODT 4 mg - dissolve 1 tablet by ORAL route 4 times per day As needed do not chew, do not swallow whole; 10 tablet. - Medication Reconciliation, Local Pharmacy Hours form. - Follow up: [facility]; When: 2 - 3 days; Reason: Recheck today's complaints, Continuance of care. - Problem is new. - Symptoms have improved. Historical: - Allergies: Lamictal (Rash); Levaquin (Vomit); - Home Meds: 1. Klonopin 0.5 mg Oral TbDL 1 tab four times a day 2. metoprolol succinate 25 mg Tb24 1 tab nightly 3. Seroquel 100 mg Oral tab 1 tab nightly - PMHx: Anxiety; tachycardia; - PSHx: Hysterectomy; ; D & C; Left Knee Surgery; - Social history: Smoking status: Patient uses tobacco products, heavy tobacco smoker. No barriers to communication noted, The patient speaks fluent Polish. - Family history: Not pertinent. - : The pt / caregiver states he / she is not on anticoagulants. Home medication list is obtained from the patient, [employer] import data. - Exposure Risk Screening:: None identified. 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 2 in. (157.48 cm); Pain 8/10; 18:51 BP 115 / 48; Pulse 85; Resp 18; Pulse Ox 98% on R/A; Pain 6/10; dsf 22:10 BP 127 / 72; Pulse 65; Resp 18; Temp 98.6(TE); Pulse Ox 98% on R/A; Pain 3/10; daniel 16:34 Body Mass Index 20.12 (49.90 kg, 157.48 cm) cmb MDM: 17:50 IV Saline Lock ordered. cs11 17:50 NS 0.9% 1000 ml IV at bolus once ordered. cs11 17:50 Set up pelvic ordered. cs11 17:51 morphine 4 mg IVP once ordered. cs11 17:51 CBC with Diff Ordered. EDMS 17:51 MED Profile Ordered. EDMS 17:51 Liver Profile Ordered. EDMS 17:51 Amylase Ordered. EDMS 17:51 Lipase Ordered. EDMS 17:51 Urinalysis Ordered. EDMS 17:51 Urine Culture Ordered. EDMS 18:28 Wet Prep Ordered. EDMS 18:28 GC & Chlamydia Amplification Ordered. EDMS 18:30 CT ABD & PELVIS: No Contrast Ordered. EDMS 19:32 Financial registration complete. gjb 20:06 Test interpretation: interpreted by Radiologist and personally reviewed, Abdomen/Pelvis pc CT; enteritis, else nad. 20:07 CBC with Diff Reviewed. pc 20:07 MED Profile Reviewed. pc 20:07 Liver Profile Reviewed. pc 20:07 Urinalysis Reviewed. pc 20:07 Amylase Reviewed. pc 20:07 Lipase Reviewed. pc 20:07 Wet Prep Reviewed. pc 20:07 CT ABD & PELVIS: No Contrast Reviewed. pc 20:08 Data reviewed: lab test results, all radiology studies and available results. Test pc interpretation: LAB - all labs as ordered have been reviewed, interpreted and considered in the overall management of the clinical presentation;. The patient has been re-examined and re-evaluated. The patient's symptoms have mildly improved after treatment. Disposition: The historical points, examination findings, and any diagnostic results supporting the provided diagnosis, were discussed with the patient or legal guardian. The need for outpatient follow up with the provider listed on their discharge instructions was discussed. They were encouraged to return to [facility], or the nearest ED, if symptoms worsen/persist, or for any other questions/concerns. 20:09 metroNIDAZOLE 500 mg PO once ordered. pc 20:09 ketorolac 30 mg IVP once ordered. pc 03/12 00:06 [facility] Payment Agreement was scanned into [employer] and attached to record. [email or web address] 12:07 Radiology Report was scanned into [employer] and attached to record. gb 12:28 T-Sheet-- Draft Copy was scanned into [employer] and attached to record. gb Administered Medications: 03/11 18:11 Drug: NS 0.9% 1000 ml [sodium chloride 0.9 % injection solution] Route: IV; Rate: dsf bolus; Site: right antecubital; 18:11 Drug: morphine 4 mg [morphine 4 mg/mL intravenous cartridge (1 mL)] Route: IVP; Site: dsf right antecubital; 18:51 Follow up: BP 115 / 48; Pulse 85 bpm; Resp 18 bpm; Pulse Ox 98% RA; Pain 6/10 Adult dsf 20:45 Drug: metroNIDAZOLE 500 mg [metronidazole 500 mg tablet (1 tabs)] Route: PO; cf2 20:45 Drug: ketorolac 30 mg [ketorolac 30 mg/mL (1 mL) injection solution (1 mL)] Route: IVP; cf2 Site: right antecubital; Signatures: Dispatcher [employer] EDMS Colin Villa MD MD pc Sleeman, Kacey, RN RN [facility] Ny Garcia, Reg Reg gb Jos Stone, DO cs11 Libia Jones RN RN ko2 Isabel Vera Kimberly, Reg Reg [id number] Maddie Sharpe RN RN cf2 Aspen Diggs RN dsf The chart was reviewed and I authenticate all verbal orders and agree with the evaluation and treatment provided.Attachments: 03/12 00:06 [facility] Payment Agreement [email or web address] 12:28 T-Sheet-- Draft Copy gb Chart Complete MTDD
== END 2016-03-11 22:20 | disposition home or self-care (01) ==
LOC: M ED 16:24
DX: A08.4 Viral intestinal infection, unspecified (principal); N76.0 Acute vaginitis; F41.9 Anxiety disorder, unspecified; R00.0 Tachycardia, unspecified; F17.210 Nicotine dependence, cigarettes, uncomplicated; Z79.899 Other long term (current) drug therapy; Z88.8 Allergy status to other drugs, medicaments and biological substances; Z88.1 Allergy status to other antibiotic agents
CPT/HCPCS: 74176; 80048; 80076; 81001; 82150; 83690; 85025; 87086; 87210; 87491; 87591; 96374; 96375; 99284; J1885